=== PATIENT | female | born 1960 | race Caucasian/White ===

== ENCOUNTER → 2016-11-08 | Outpatient (CLI) | payer BC, OTHER ==
[~2016-11-08] MED LIST: IBUP-103 PO; MULT-506 PO; OMEG10007 PO; PRLSR20 PO
--- NOTE | 2016-11-09 14:09 | MAMMOGRAPHY REPORT ---
BILATERAL DIGITAL SCREENING MAMMOGRAM TOMOSYNTHESIS WITH CAD: 11/08/2016 CLINICAL HISTORY: Routine screening. Patient has no complaints. TECHNIQUE: Breast tomosynthesis in addition to standard 2D mammography was performed. Current study was also evaluated with a Computer Aided Detection (CAD) system. COMPARISON: Comparison is made to exams dated: 05/07/2013 mammogram, 02/06/2012 mammogram - [facility], 05/21/2007, and 05/21/2007. BREAST COMPOSITION: The tissue of both breasts is heterogeneously dense, which may obscure small ma sses. FINDINGS: There are diffuse bilateral punctate microcalcifications, some of which demonstrate layeri ng on the MLO views, suggesting benign milk of calcium. There is fluctuating nodularity bilaterally . Evidence of prior surgery within the right breast. No suspicious spiculated or irregular mass, a rchitectural distortion or cluster of suspicious microcalcifications is seen. IMPRESSION: ACR BI-RADS CATEGORY 1: NEGATIVE There is no mammographic evidence of malignancy. A 1 year screening mammogram is recommended. The p atient will receive written notification of the results. Approximately 10% of breast cancers are not detected with mammography. A negative mammographic repor t should not delay biopsy if a clinically suggestive mass is present. Gaviota Crawley M.D. ay/:11/08/2016 17:29:26 Conveyor Operator: Parish REYNOSO(Dirk)(Faheem), [facility] letter sent: Normal 1/2 BI-RADS Code: ACR BI-RADS Category 1: Negative
== END | disposition home or self-care (01) ==
LOC: C.MAMM 07:11
PROVIDERS: ATTEND Internal Medicine
DX: Z12.31 Encounter for screening mammogram for malignant neoplasm of breast (principal)

== ENCOUNTER → 2017-01-06 | Outpatient (CLI) | payer BC, OTHER ==
[~2017-01-06] MED LIST changes: +GADAVIST IV PRN
--- NOTE | 2017-01-06 15:18 | DIAGNOSTIC IMAGING REPORT ---
BRAIN COMBO CLINICAL HISTORY: 56 years-old Female presenting with MENINGIOMA. TECHNIQUE: Multisequence, multiplanar MR imaging of the brain was performed before and after the administration of intravenous contrast. IV contrast: 8 mL of Gadavist. COMPARISON: 01/08/2016. FINDINGS: No extra-axial enhancing mass in the right frontal region has minimally increased in size, now measuring 37 x 16 x 32 mm, previously 34 x 15 x 28 mm. Prominent dural tails. Associated slight increased mass effect on the underlying right frontal lobe. Slightly increased convex margin toward the inner table of the calvarium. No gross evidence of infiltration into the right frontal calvarial bone marrow. Ventricles and sulci normal in size. Brain parenchyma normal in appearance with preserved hammonds-white differentiation. No mass effect or midline shift. No hemorrhage or acute territorial infarct. No extra-axial fluid collection. Skull base flow voids preserved. Paranasal sinuses and mastoid air cells clear. Calvarium intact. IMPRESSION: Continued slow growth of the right frontal extra-axial mass consistent with meningioma No acute intracranial pathology. Electronically signed by: Avinash Chavez M.D. 01/06/2017 3:17 PM Dictated Date/Time: 01/06/2017 3:08 PM
== END | disposition home or self-care (01) ==
LOC: C.MRIBC 13:28
PROVIDERS: ATTEND Neurological Surgery
DX: D32.9 Benign neoplasm of meninges, unspecified (principal)

== ENCOUNTER → 2017-05-03 | Outpatient (CLI) | payer BC, OTHER ==
[~2017-05-03] MED LIST changes: -GADAVIST IV PRN
[2017-05-03 19:00] LABS: LYME DISEASE AB IGG NEG (NEG); LYME DISEASE AB IGM NEG (NEG)
== END | disposition home or self-care (01) ==
LOC: C.LABBFT 15:09
PROVIDERS: ATTEND Internal Medicine
DX: T14.8XXA Other injury of unspecified body region, initial encounter (principal); W57.XXXA Bitten or stung by nonvenomous insect and other nonvenomous arthropods, initial encounter

== ENCOUNTER → 2017-10-27 | Outpatient (CLI) | payer OTHER ==
[~2017-10-27] MED LIST changes: +GADAVIST IV PRN
--- NOTE | 2017-10-27 14:53 | DIAGNOSTIC IMAGING REPORT ---
BRAIN COMBO CLINICAL HISTORY: 56 years-old Female presenting with BENIGN MENINGIOMA OF BRAIN. TECHNIQUE: Multisequence, multiplanar MR imaging of the brain was performed before and after the administration of intravenous contrast. IV contrast: 8 mL of Gadavist. COMPARISON: 01/06/2017. FINDINGS: Redemonstration of the avidly enhancing extra-axial mass arising from the right frontal dura. This measures 3.3 x 3.8 x 1.8 cm, previously 3.2 x 3.7 x 1.6 cm. This is consistent with continued slow interval growth. Regional mass effect on the right frontal lobe is slightly increased from prior. No subjacent parenchymal signal intensity changes. Ventricles and sulci normal in size. Brain parenchyma normal in appearance with preserved ahmmonds-white differentiation. No midline shift. No restricted diffusion to suggest acute ischemia. No hemorrhage. No extra-axial fluid collection. T2 skull base flow voids preserved. No abnormal parenchymal enhancement. Bone marrow signal intensity within the calvarium within normal limits. IMPRESSION: 1. Slow interval growth of the right frontal extra-axial mass consistent with meningioma. No acute intracranial pathology. Electronically signed by: Avinash Chavez M.D. 10/27/2017 2:52 PM Dictated Date/Time: 10/27/2017 2:42 PM
== END | disposition home or self-care (01) ==
LOC: C.MRIBC 13:37
PROVIDERS: ATTEND Neurological Surgery
DX: D32.0 Benign neoplasm of cerebral meninges (principal)

== ENCOUNTER → 2018-01-05 | Outpatient (CLI) | payer OTHER ==
[~2018-01-05] MED LIST changes: -GADAVIST IV PRN
--- NOTE | 2018-01-05 16:32 | DIAGNOSTIC IMAGING REPORT ---
MRI LUMBAR SPINE W/O CONTRAST CLINICAL HISTORY: Severe back pain of 6 months duration with left leg radiculopathy. TECHNIQUE: Sagittal and axial T1, T2 and STIR images were obtained. COMPARISON STUDY: No previous studies for comparison. OBSERVATIONS: The vertebral bodies and posterior elements appear intact. There is no abnormal bony signal present to suggest a marrow replacement process. L1-2: There is mild retrolisthesis of L1 on L2. There is a circumferential disc bulge. There is mild effacement of the anterior thecal sac. There is mild right-sided foraminal narrowing and moderate left-sided foraminal narrowing L2-3: There is a circumferential disc bulge with minimal spinal canal narrowing. There is no significant foraminal stenosis L3-4: There is a circumferential disc bulge with moderate spinal canal narrowing. Also evident is a right-sided extruded disc herniation which extends into the right lateral recess. L4-5: There is a circumferential disc bulge with mild spinal canal narrowing. There is no significant foraminal stenosis. L5-S1: There is a broad-based central disc protrusion. There is bilateral foraminal narrowing left more severe than right On sagittal images, there is a suspected T11-12 disc protrusion. The conus medullaris and cauda equina appear normal. IMPRESSION: 1. Advanced multilevel spondylitic changes. 2. Moderate spinal canal narrowing at the L3-4 level. 3. Extruded right-sided disc herniation at the L3-4 level. Disc material extends into the right lateral recess. 4. Broad-based central disc protrusion at the L5-S1 level. 5. Foraminal narrowing most pronounced the L1-2 level and L5-S1 level. Electronically signed by: Gary Woodson M.D. 01/05/2018 4:31 PM Dictated Date/Time: 01/05/2018 4:25 PM
== END | disposition home or self-care (01) ==
LOC: C.MRIBC 15:22
PROVIDERS: ATTEND Internal Medicine
DX: R20.9 Unspecified disturbances of skin sensation (principal); M51.26 Other intervertebral disc displacement, lumbar region; M51.27 Other intervertebral disc displacement, lumbosacral region; R93.7 Abnormal findings on diagnostic imaging of other parts of musculoskeletal system